=== PATIENT | female | born 1960 | race Caucasian/White ===

== ENCOUNTER 2024-09-02 10:08 | Emergency (ER) | payer BC, SELFPAY ==
--- NOTE | 2024-09-02 10:40 | XR_ITS ---
EXAMINATION: Ankle, left 3 views . Technique: Ankle AP, oblique, lateral 3 views Date and time of exam: September 02, 2024 1048 hours INDICATIONS: Injury to the ankle yesterday ankle pain FINDINGS: Acute fractures distal fibular shaft, on the lateral view 3 mm offset of the main fracture fragments No ankle dislocation IMPRESSION: Acute fractures distal fibular shaft
--- NOTE | 2024-09-02 10:40 | XR_ITS ---
Examination: Foot, left, 3 views Technique: AP, oblique, lateral views foot, 3 views Date and time of exam: September 02, 2024 1048 hours INDICATIONS: Injury to the foot yesterday, foot pain. FINDINGS: Acute fracture distal fibular shaft Bones of the foot intact IMPRESSION: Acute fractures distal fibular shaft
[2024-09-02 10:43] VITALS: BP 176/90; PULSE 105; RESP 18; TEMP 36.8; O2SAT 99; BMI 32.1
[2024-09-02] MEDS: HYDROcodone/APAP 5/325 TABLET 1 TAB PO (11:15)
[2024-09-02] MEDS: IBUPROFEN TAB 600 MG TABLET PO (11:15)
--- NOTE | 2024-09-02 11:27 | EDNOTE_ITS ---
Lower Extremity Injury RME/HPI General Chief Complaint: Extremity Injury, Lower Stated Complaint: Fell yesterday, left ankle swelling Time Seen by Provider: 09/02/24 10:15 Arrival date/time: 09/02/24 10:08 63-year-old female presents the emergency department day for complaints of left ankle injury patient reports that she had a trip and fall in the garden yesterday patient reports feeling a cracking sensation to the left ankle. Patient reports no head or neck injury Limitations: no limitations Related Data Previous Rx's ?Medication ?Instructions ?Recorded hydrocodone 5 mg-acetaminophen 325 1 tab PO BID PRN pa in #10 tabs 09/02/24 mg tablet ibuprofen 800 mg tablet 800 mg PO TID PRN pain #30 t abs 09/02/24 Allergies Allergy/AdvReac Type Severity Reaction Status Date / Time No Known Allergies Allergy Verified 09/02/24 10:13 Review of Systems Review of Systems Systems Reviewed: All systems reviewed, normal except as documented Constitutional Constitutional: Reports system reviewed and no additional complaints, except as documented, Denies fever(s) and Denies headache(s) Eyes Eyes: Reports system reviewed and no additional complaints, except as documented and Denies blurry vision ENT Ears, Nose, Mouth, and Throat: Reports system reviewed and no additional complaints, except as documented, Denies headache(s), Denies nasal congestion an d Denies nasal discharge Cardiovascular Cardiovascular: Reports system reviewed and no additional complaints, except as documented, Denies chest pain and Denies dyspnea Respiratory Respiratory: Reports system reviewed and no additional complaints, except as documented, Denies chest congestion, Denies cough and Denies dyspnea Gastrointestinal Gastrointestinal: Reports system reviewed and no additional complaints, except as documented and Denies abdominal pain Musculoskeletal Musculoskeletal: Reports system reviewed and no additional complaints, except as documented, Reports abnormal gait, Reports arthralgias, Reports joint swelling and Denies numbness Integumentary/Breasts Skin/Breast: Reports system reviewed and no additional complaints, except as documented and Denies rash Neurologic Neurologic: Reports system reviewed and no additional complaints, except as documented, Reports as per HPI, Reports abnormal gait, Denies headache(s) and Denies numbness Past Medical History Social History SMOKING STATUS: Never smoker ED Exam General Limitations: Present no limitations General appearance: Present alert and in no apparent distress Head Head exam: Present atraumatic, normocephalic and normal inspection Eye Eye exam: Present normal appearance, PERRL and EOMI; Absent conjunctival injection ENT ENT exam: Present normal exam, normal oropharynx and mucous membranes moist Neck Neck exam: Present normal inspection, full ROM and trachea midline Chest Chest inspection: Present normal inspection and symmetric chest wall rise Respiratory Respiratory exam: Present normal lung sounds bilaterally Cardiovascular Cardiovascular exam: Present regular rate, normal rhythm and normal heart sounds Abdominal Exam Abdominal exam: Present soft and normal bowel sounds Extremities Exam Extremities exam: Present full ROM, tenderness, normal capillary refill and joint swelling; Absent pedal edema or calf tenderness Back Exam Back exam: Present normal inspection and full ROM Neurological Exam Neurological exam: Present alert, oriented X3 and CN II-XII intact Psychiatric Psychiatric exam: Present normal affect and normal mood Skin Skin exam: Present warm, dry, intact and normal color Course Quality Measures none Orders Category Date Time Status Crutches .NOW Care 09/02/24 11:01 Active Splint / Immobilizer STAT Care 09/02/24 11:01 Active XR ankle comp LT min 3V Stat Exams 09/02/24 10:40 Completed XR foot comp LT min 3V Stat Exams 09/02/24 10:40 Completed HYDROcodone*/APAP 5/325 [[place] 5/325] Med 09/02/24 11:01 Discontinued 1 tab PO X1 ONE Ibuprofen Tab [Motrin Tab] Med 09/02/24 11:01 Discontinued 600 mg PO X1 ONE Vital Signs Vital signs: Vital Signs Temperature 98.2 F 09/02/24 10:43 Pulse Rate 105 H 09/02/24 10:43 Respiratory Rate 18 09/02/24 10:43 Blood Pressure 176/90 H 09/02/24 10:43 Pulse Oximetry (%) 99 09/02/24 10:43 Oxygen Delivery Method Room Air 09/02/24 10:43 O2 saturation 99% room air with normal limits Procedures -ED Splint Fabrication: Clinician Made Type: Posterior Leg Reason for Splint: Optimal Positioning and Pain Management Site condition: Pain and Tingling Circulation Distal to Splint: Yes Movement Distal to Splint: Yes Senation Distal to Splint: Yes Tolerance: Tolerates Well Extremity Injury, Lower MDM Narrative MDM Narrative:: 63-year-old female presents the emergency department day for complaints of left ankle injury patient reports that she had a trip and fall in the garden yesterday patient reports feeling a cracking sensation to the left ankle. Patient reports no head or neck injury On exam patient has tenderness and swelling left ankle Imaging of the left ankle and foot obtained patient has distal fibula fracture Patient placed in a posterior short leg splint and offered crutches patient declined the crutches. Patient reports that she will go to the pharmacy and obtain a walker. Patient is instructed to follow-up with orthopedist as soon as possible for further evaluation of the fracture patient is also instructed to remain completely nonweightbearing. Patient states understanding Patient data External records reviewed:: [facility] previous records Clinical information provided by:: patient Social determinants that could affect healthcare access:: none Patient has the following chronic illnesses:: See history How is presenting disease/condition affected by chronic disease/condition?: uneffected by Evaluation data The following diagnostics were reviewed and interpreted by me:: radiology exam(s) Lab and/or radiology exams considered but not ordered:: Radiology obtain Interpretation Summary: Reviewed by me Medications / Prescriptions Medications or Prescriptions considered but not ordered:: Given Medication administrations:: Medication Administration History Discontinued Medications Hydrocodone Bitart/Acetaminophen (Hydrocodone/[place]ap 5/325 Tablet) 1 tab PO X1 ONE Stop: 09/02/24 11:02 Last Admin: 09/02/24 11:15 Dose: 1 tab Documented By: TC Ibuprofen (Ibuprofen Tab 600 Mg Tablet) 600 mg PO X1 ONE Stop: 09/02/24 11:02 Last Admin: 09/02/24 11:15 Dose: 600 mg Documented By: TC Given Consultations Consultation(s) initiated? (list below): No Diagnosis Extremity Injury, Lower Differential Diagnosis: ankle sprain and strain and ankle fracture Most likely diagnosis given after review of the tests above:: Ankle fracture Admission Indicated Admission indicated?: not indicated Admission Request Was there a request for admission?: No Disposition Plan Disposition Plan: Discharge Discharge Attestation Discharge Attestation: The patient and all family members were given an opportunity to ask questions and understood the discharge instructions. Discharge instructions specifically effects, indications for sooner follow up or return to the emergency department, and the expected course of current diagnosis. Patient condition: Stable Discharge Plan Plan Patient Disposition: HOME (Self Care) Discharge Disposition comment: Stable Prescriptions/Referrals Prescriptions/Med Rec: New ibuprofen 800 mg tablet 800 mg PO TID PRN (Reason: pain) Qty: 30 0RF hydrocodone-acetaminophen 5-325 mg tablet 1 tab PO BID MDD 10 PRN (Reason: pain) Qty: 10 0RF Referrals: No Primary/Family,Physician [Primary Care Provider] - 09/03/24 Problem List Clinical Impression: Fracture of distal end of fibula Patient/Caregiver Discharge Instructions Education Materials: How Bones Heal Additional Instructions: Please follow up with your primary care doctor in the next 24-48hrs for any worsening symptoms return here immediately Print Language: [employer] Stand Alone Forms: Award Info., Patient Portal Info Letter PA/HORTICULTURE SUPERINTENDENT Supervising Physician PA/HORTICULTURE SUPERINTENDENT Supervising Physician: dr [email or web address]
== END 2024-09-02 11:49 | disposition home or self-care (01) ==
PROVIDERS: Emergency Provider Family Medicine
DX: S82.832A Other fracture of upper and lower end of left fibula, initial encounter for closed fracture (principal); W01.0XXA Fall on same level from slipping, tripping and stumbling without subsequent striking against object, initial encounter
CPT/HCPCS: 29515; 73610; 73630; 99283; A9270